=== PATIENT | female | born 2000 | race Caucasian/White ===

== ENCOUNTER 2023-09-08 04:31 | Emergency (ER) | payer SELFPAY ==
[2023-09-08 04:40] VITALS: BP 117/76; PULSE 90; RESP 19; TEMP 97.8; BMI 26.4
[2023-09-08] MEDS ORDERED: DIPHTH,PERTUSS(ACELL),TET 0.5 ML DISP.SYRIN IM ONE (05:23)
[2023-09-08] MEDS: DIPHTH,PERTUSS(ACELL),TET 0.5 ML DISP.SYRIN IM ONE (05:43)
== END 2023-09-08 06:41 | disposition home or self-care (01) ==
LOC: JER 04:31
PROC: 3E0234Z Introduction of Serum, Toxoid and Vaccine into Muscle, Percutaneous Approach (ICD-10-PCS; principal; 2023-09-08)
DX: S00.81XA Abrasion of other part of head, initial encounter (principal); S10.91XA Abrasion of unspecified part of neck, initial encounter; Y04.8XXA Assault by other bodily force, initial encounter; Z23 Encounter for immunization
CPT/HCPCS: 90715; 99282-25

== ENCOUNTER 2024-01-21 16:52 | Emergency (ER) | payer SELFPAY ==
[2024-01-21 17:22] VITALS: RESP 16; TEMP 99.1; BMI 20.7
[2024-01-21 18:32] LABS: BASO % 0.5 % (0-2.0); EOS % 1.3 % (0-4.5); HEMATOCRIT 38.3 % (32.4-45.2); HEMOGLOBIN 12.2 GM/dL (10.7-15.3); LYMPH % 20.8 % (8-40); MCH 23.3 pg (25.7-33.7); MCHC 31.8 g/dl (32.0-36.0); MEAN CELL VOLUME 73.4 fl (80-96); MEAN PLT VOLUME 8.2 fl (7.5-11.1); MONO % 6.7 % (3.8-10.2); NEUT % 70.7 % (42.8-82.8); PLATELET COUNT 374 10^3/uL (134-434); RBC 5.22 M/mm3 (3.60-5.2); RDW 16.2 % (11.6-15.6); WHITE BLOOD COUNT 8.6 K/mm3 (4.0-10.0)
[2024-01-21 18:38] LABS: INR 1.02 (0.83-1.09); PROTHROMBIN TIME (PATIENT) 11.7 SEC (9.7-13.0)
[2024-01-21 18:40] LABS: EPI CELLS 25 /uL (0-25.1); HYALINE CASTS 1 /uL (0-3.1); PH,URINE 6.5 (5.0-8.0); URINE APPEARANCE CLEAR; URINE BACTERIA 1828 /uL (0-1359); URINE BILIRUBIN NEGATIVE (NEGATIVE); URINE COLOR YELLOW; URINE GLUCOSE (UA) NEGATIVE (NEGATIVE); URINE KETONE NEGATIVE (NEGATIVE); URINE LEUK ESTERASE TRACE (NEGATIVE); URINE NITRITE NEGATIVE (NEGATIVE); URINE PROTEIN NEGATIVE (NEGATIVE); URINE RBC 48 /uL (0-23.9); URINE WBC 37 /uL (0-25.8)
[2024-01-21 18:40] LABS: ACTIVATED PTT 32.9 SECONDS (25.2-36.5)
[2024-01-21 18:45] LABS: POTASSIUM 4.5 mmol/L (3.5-5.1)
[2024-01-21 18:48] LABS: CALCIUM 9.2 mg/dL (8.5-10.1)
[2024-01-21 18:49] LABS: ALBUMIN 4.1 g/dl (3.4-5.0); BLOOD UREA NITROGEN 5.3 mg/dL (7-18)
[2024-01-21 18:52] LABS: CREATININE 0.7 mg/dL (0.55-1.3)
[2024-01-21 18:53] LABS: BILIRUBIN,TOTAL 0.6 mg/dL (0.2-1)
[2024-01-21 18:54] LABS: TOT PROT 7.7 g/dl (6.4-8.2)
[2024-01-21 21:38] VITALS: BP 117/64; PULSE 76
[2024-01-21 22:18] LABS: HIV INTERPRETATION NEGATIVE (NEGATIVE)
== END 2024-01-21 21:37 | disposition home or self-care (01) ==
LOC: JER 16:52
DX: O23.11 Infections of bladder in pregnancy, first trimester (principal); N30.00 Acute cystitis without hematuria; Z3A.01 Less than 8 weeks gestation of pregnancy
CPT/HCPCS: 36415; 76817-TC; 80053; 81003; 84702; 85025; 85610; 85730; 86803; 86850; 86900; 86901; 87389; 99284-25

== ENCOUNTER 2024-01-24 18:00 | Emergency (ER) | payer SELFPAY ==
[2024-01-24 18:15] VITALS: BP 125/83; PULSE 68; RESP 20; TEMP 98.5; BMI 27.4
[2024-01-24] MEDS ORDERED: ACETAMINOPHEN 500 MG TABLET (FP) ONE (19:20)
[2024-01-24 19:48] LABS: BASO % 0.8 % (0-2.0); HEMATOCRIT 37.3 % (32.4-45.2); HEMOGLOBIN 11.9 GM/dL (10.7-15.3); MCH 23.6 pg (25.7-33.7); MCHC 31.8 g/dl (32.0-36.0); MEAN CELL VOLUME 74.2 fl (80-96); MEAN PLT VOLUME 8.4 fl (7.5-11.1); MONO % 7.4 % (3.8-10.2); NEUT % 71.8 % (42.8-82.8); PLATELET COUNT 355 10^3/uL (134-434); RBC 5.03 M/mm3 (3.60-5.2); RDW 15.7 % (11.6-15.6); WHITE BLOOD COUNT 9.9 K/mm3 (4.0-10.0)
[2024-01-24 19:49] LABS: HCG,QUALITATIVE URINE Positive
[2024-01-24 19:53] LABS: EPI CELLS >36 /uL (0-25.1); HYALINE CASTS 1 /uL (0-3.1); URINE APPEARANCE CLOUDY; URINE BILIRUBIN NEGATIVE (NEGATIVE); URINE COLOR ORANGE; URINE GLUCOSE (UA) NEGATIVE (NEGATIVE); URINE KETONE NEGATIVE (NEGATIVE); URINE LEUK ESTERASE TRACE (NEGATIVE); URINE NITRITE NEGATIVE (NEGATIVE); URINE PROTEIN NEGATIVE (NEGATIVE); URINE RBC 2320 /uL (0-23.9); URINE WBC 28 /uL (0-25.8)
[2024-01-24 20:19] LABS: CALCIUM 9.1 mg/dL (8.5-10.1)
[2024-01-24 20:21] LABS: ALBUMIN 3.9 g/dl (3.4-5.0); BLOOD UREA NITROGEN 8.5 mg/dL (7-18)
[2024-01-24 20:22] LABS: CREATININE 0.7 mg/dL (0.55-1.3)
[2024-01-24 20:24] LABS: BILIRUBIN,TOTAL 0.5 mg/dL (0.2-1); TOT PROT 7.5 g/dl (6.4-8.2)
[2024-01-24] MEDS: ACETAMINOPHEN 500 MG TABLET (FP) PO ONE (20:38)
== END 2024-01-24 20:41 | disposition home or self-care (01) ==
LOC: JER 18:00
DX: O03.9 Complete or unspecified spontaneous abortion without complication (principal)
CPT/HCPCS: 36415; 76817-TC; 80053; 81003; 84702; 84703; 85025; 86850; 86900; 86901; 87086; 99284-25

== ENCOUNTER 2024-04-21 18:32 | Emergency (ER) | payer SELFPAY ==
[2024-04-21 18:45] VITALS: BP 111/67; PULSE 80; RESP 16; TEMP 99.1; BMI 25.4
[2024-04-21] MEDS: IBUPROFEN 400 MG TABLET (FP) PO ONE (20:45)
[2024-04-21] MEDS: ONDANSETRON *ODT* 4 MG TABLET SL ONE (20:46)
[2024-04-21] MEDS ORDERED: ONDANSETRON *ODT* 4 MG TABLET ONE (20:49)
[2024-04-21] MEDS ORDERED: IBUPROFEN 400 MG TABLET (FP) PO ONE (20:49)
[2024-04-21 21:56] LABS: PH,URINE 8.5 (5.0-8.0); URINE APPEARANCE TURBID; URINE BILIRUBIN NEGATIVE (NEGATIVE); URINE COLOR YELLOW; URINE GLUCOSE (UA) NEGATIVE (NEGATIVE); URINE KETONE TRACE (NEGATIVE); URINE LEUK ESTERASE NEGATIVE (NEGATIVE); URINE NITRITE NEGATIVE (NEGATIVE); URINE PROTEIN NEGATIVE (NEGATIVE)
== END 2024-04-21 22:50 | disposition home or self-care (01) ==
LOC: JER 18:32
DX: N83.202 Unspecified ovarian cyst, left side (principal); R10.2 Pelvic and perineal pain; R10.32 Left lower quadrant pain; R11.2 Nausea with vomiting, unspecified; R50.9 Fever, unspecified; Z20.822 Contact with and (suspected) exposure to COVID-19
CPT/HCPCS: 0241U-QW; 76830-TC; 81003; 84703; 87086; 99284-25; Q0162